=== PATIENT | female | born 2000 | race Asian ===

== ENCOUNTER 2022-04-24 13:44 | Emergency (ER) | payer MEDICAID ==
[~2022-04-24] VITALS: Ht 154.9 cm; Wt 39.0 kg
[~2022-04-24 13:44] MED LIST: FLUO10CA24 PO; OLAN2.5T3 PO
[2022-04-24] MEDS ORDERED: SODIUM CHLORIDE 0.9% 1,000 ML IV ONE (14:15)
[2022-04-24] MEDS ORDERED: KETOROLAC TROMETHAMINE 30 MG/ML VIAL IVP ONE (14:15)
[2022-04-24] MEDS ORDERED: ONDANSETRON HCL 4 MG/2 ML VIAL IVP ONE ×2 (14:15→16:00)
[2022-04-24 14:45] LABS: BASOPHILS % (AUTO) 0.7 % (0.0-2.0); EOSINOPHILS % (AUTO) 0.4 % (1.0-6.0); HEMATOCRIT 32.3 % (36-46); HEMOGLOBIN 10.7 g/dL (12.0-16.0); LYMPHOCYTES # (AUTO) 1.7 K/uL (1.0-4.8); LYMPHOCYTES % (AUTO) 23.7 % (22.0-44.0); MEAN CORPUSCULAR VOLUME 82 fL (80-100); MONOCYTES # (AUTO) 0.4 K/uL (0.1-1.0); MONOCYTES % (AUTO) 6.2 % (2.0-9.0); NEUTROPHILS # (AUTO) 4.9 K/uL (1.8-7.7); PLATELET COUNT (AUTO) 274 K/uL (150-450); RED BLOOD CELL COUNT(AUTO) 3.95 MIL/uL (4.00-5.20); RED CELL DISTRIBUTION WIDTH 12.8 % (11.5-14.5)
[2022-04-24 15:03] LABS: ANION GAP 14 mmol/L (8-16); CALCIUM, TOTAL 10.5 mg/dL (8.8-10.5); CARBON DIOXIDE 20 mmol/L (22-29); CHLORIDE 102 mmol/L (98-107); CREATININE 0.87 mg/dL (0.60-1.30); GLOMERULAR FILTR. RATE CALC > 60 mL/min (>60); GLUCOSE,RANDOM 137 mg/dL (70-110); POTASSIUM 3.1 mmol/L (3.5-5.1); SODIUM SERUM 136 mmol/L (136-145); UREA NITROGEN, BLOOD 12 mg/dL (7-18)
[2022-04-24 15:08] LABS: ALANINE AMINOTRANSFERASE 26 U/L (12-78); ALBUMIN 3.6 g/dL (3.4-5.0); ALKALINE PHOSPHATASE 52 U/L (46-116); ASPARTATE AMINOTRANSFERASE 26 U/L (15-37); BILIRUBIN,TOTAL 0.3 mg/dL (0.1-1.0); LIPASE 109 U/L (73-393); TOTAL PROTEIN, SERUM 8.4 g/dL (6.4-8.2)
[2022-04-24] MEDS ORDERED: PB/HYOSCY/ATR/SCOP/LIDO/MAALOX 55 ML BOTTLE PO ONE (15:30)
[2022-04-24] MEDS ORDERED: OMEPRAZOLE 20 MG CAPSULE PO ONE (16:00)
[2022-04-24 16:05] VITALS: BP 117/76
[2022-04-24] MEDS ORDERED: OMEP20 PO (16:54)
[2022-04-24] MEDS ORDERED: ONDA-104 PO (16:54)
== END 2022-04-24 17:02 | disposition home or self-care (01) ==
LOC: EMS 13:49
DX: R10.84 Generalized abdominal pain (principal); F32.9 Major depressive disorder, single episode, unspecified; F90.9 Attention-deficit hyperactivity disorder, unspecified type
CPT/HCPCS: 99284; 96374; 96361; 96375; 80053; 83690; 85025; 96376; J1885; J2405; J7030

== ENCOUNTER 2022-04-25 09:24 | Emergency (ER) | payer MEDICAID ==
[~2022-04-25] VITALS: Ht 154.9 cm; Wt 43.2 kg
[~2022-04-25 09:24] MED LIST changes: +OMEP20 PO; +ONDA-104 PO
[2022-04-25] MEDS ORDERED: SODIUM CHLORIDE 0.9% 100 ML ONE (09:46)
[2022-04-25] MEDS ORDERED: IOHEXOL 350 MG/ML 100 ML VIAL ONE (09:46)
[2022-04-25 10:39] LABS: BASOPHILS % (AUTO) 0.2 % (0.0-2.0); EOSINOPHILS % (AUTO) 0 % (1.0-6.0); HEMATOCRIT 32.8 % (36-46); HEMOGLOBIN 10.6 g/dL (12.0-16.0); LYMPHOCYTES # (AUTO) 1.4 K/uL (1.0-4.8); LYMPHOCYTES % (AUTO) 18.1 % (22.0-44.0); MEAN CORPUSCULAR HGB CONC 32.4 G/dL (31.0-37.0); MEAN CORPUSCULAR VOLUME 83 fL (80-100); MONOCYTES # (AUTO) 0.5 K/uL (0.1-1.0); MONOCYTES % (AUTO) 6.1 % (2.0-9.0); NEUTROPHILS # (AUTO) 5.9 K/uL (1.8-7.7); NEUTROPHILS % (AUTO) 75.6 % (40.0-70.0); PLATELET COUNT (AUTO) 260 K/uL (150-450); RED BLOOD CELL COUNT(AUTO) 3.94 MIL/uL (4.00-5.20); RED CELL DISTRIBUTION WIDTH 12.7 % (11.5-14.5)
[2022-04-25 10:48] LABS: ANION GAP 15 mmol/L (8-16); CALCIUM, TOTAL 8.3 mg/dL (8.8-10.5); CARBON DIOXIDE 16 mmol/L (22-29); CHLORIDE 100 mmol/L (98-107); CREATININE 0.64 mg/dL (0.60-1.30); GLOMERULAR FILTR. RATE CALC > 60 mL/min (>60); GLUCOSE,RANDOM 84 mg/dL (70-110); POTASSIUM 3.8 mmol/L (3.5-5.1); SODIUM SERUM 131 mmol/L (136-145); UREA NITROGEN, BLOOD 4 mg/dL (7-18)
[2022-04-25 11:00] LABS: ALANINE AMINOTRANSFERASE 25 U/L (12-78); ALBUMIN 3.5 g/dL (3.4-5.0); ALKALINE PHOSPHATASE 43 U/L (46-116); ASPARTATE AMINOTRANSFERASE 20 U/L (15-37); BILIRUBIN,TOTAL 0.3 mg/dL (0.1-1.0); HCG,QUANTITATIVE < 1 mIU/mL (0-6); LIPASE 84 U/L (73-393); TOTAL PROTEIN, SERUM 8.1 g/dL (6.4-8.2)
[2022-04-25 12:49] VITALS: BP 124/69
== END 2022-04-25 13:49 | disposition home or self-care (01) ==
LOC: EMS 09:25
DX: R10.9 Unspecified abdominal pain (principal); R11.10 Vomiting, unspecified; F32.A Depression, unspecified; F90.9 Attention-deficit hyperactivity disorder, unspecified type
CPT/HCPCS: 99285; 74177; 80053; 83690; 84702; 85025; 36415; Q9967; J7050

== ENCOUNTER 2023-02-27 18:40 | Inpatient (IN) | payer MEDICAID ==
[~2023-02-27] VITALS: Ht 154.9 cm; Wt 40.0 kg
[2023-02-27 20:03] LABS: BASOPHILS % (AUTO) 0.5 % (0.0-2.0); EOSINOPHILS % (AUTO) 0.2 % (1.0-6.0); HEMATOCRIT 36.7 % (36-46); HEMOGLOBIN 11.9 g/dL (12.0-16.0); LYMPHOCYTES # (AUTO) 1.7 K/uL (1.0-4.8); LYMPHOCYTES % (AUTO) 25.5 % (22.0-44.0); MEAN CORPUSCULAR HGB CONC 32.4 G/dL (31.0-37.0); MEAN CORPUSCULAR VOLUME 83 fL (80-100); MONOCYTES # (AUTO) 0.4 K/uL (0.1-1.0); MONOCYTES % (AUTO) 6.4 % (2.0-9.0); NEUTROPHILS # (AUTO) 4.6 K/uL (1.8-7.7); NEUTROPHILS % (AUTO) 67.4 % (40.0-70.0); PLATELET COUNT (AUTO) 341 K/uL (150-450)
[2023-02-27 20:11] LABS: ANION GAP 12 mmol/L (8-16); CALCIUM, TOTAL 9.4 mg/dL (8.8-10.5); CARBON DIOXIDE 23 mmol/L (22-29); CHLORIDE 98 mmol/L (98-107); CREATININE 0.69 mg/dL (0.60-1.30); GLOMERULAR FILTR. RATE CALC > 60 mL/min (>60); GLUCOSE,RANDOM 93 mg/dL (70-110); POTASSIUM 3.2 mmol/L (3.5-5.1); SODIUM SERUM 133 mmol/L (136-145)
[2023-02-27 20:23] LABS: ALANINE AMINOTRANSFERASE 16 U/L (12-78); ALBUMIN 3.8 g/dL (3.4-5.0); ALKALINE PHOSPHATASE 53 U/L (46-116); ASPARTATE AMINOTRANSFERASE 20 U/L (15-37); BILIRUBIN,TOTAL 0.2 mg/dL (0.1-1.0); HCG,QUANTITATIVE < 1 mIU/mL (0-6); TOTAL PROTEIN, SERUM 9.2 g/dL (6.4-8.2)
[2023-02-27] MEDS ORDERED: LORazepam 2 MG TABLET PO ONE (23:00)
[2023-02-27] MEDS ORDERED: DiphenhydrAMINE HCL 50 MG CAPSULE PO ONE (23:00)
[2023-02-28 00:21] LABS: COVID AG,FIA SOURCE NASAL SWAB
[2023-02-28] MEDS ORDERED: ZOLPIDEM TARTRATE 10 MG TABLET PO PRN (02:45)
[2023-02-28] MEDS ORDERED: POTASSIUM CHLORIDE 20 MEQ ER TABLET PO ONE (03:00)
[2023-02-28 04:33] VITALS: BP 97/65
[2023-02-28] MEDS ORDERED: GuaiFENesin/D-METHORPHAN [SUGAR-FREE] 200-20MG/10 ML SYRUP UDCUP PO PRN (06:15)
[2023-02-28] MEDS ORDERED: ONDANSETRON HCL 4 MG TABLET PO PRN (06:15)
[2023-02-28] MEDS ORDERED: LOPERAMIDE HCL 2 MG CAPSULE PO PRN (06:15)
[2023-02-28] MEDS ORDERED: CloNIDine HCL 0.1 MG TABLET PO PRN (06:15)
[2023-02-28] MEDS ORDERED: PETROLATUM,WHITE 28 GM JELLY TP PRN (06:15)
[2023-02-28] MEDS ORDERED: DOCUSATE SODIUM 100 MG CAPSULE PO PRN (06:15)
[2023-02-28] MEDS ORDERED: MAGNESIUM HYDROXIDE SUSPENSION 30 ML UDCUP PO PRN (06:15)
[2023-02-28] MEDS ORDERED: ALBUTEROL SULFATE HFA 90 MCG/PUFF 8 GM INHALER IH PRN (06:15)
[2023-02-28] MEDS ORDERED: IBUPROFEN 400 MG TABLET PO PRN (06:15)
[2023-02-28] MEDS ORDERED: MAG HYDROX/AL HYDROX/SIMETH ES 30 ML SUSPENSION UDCUP PO PRN (06:15)
[2023-02-28] MEDS ORDERED: ACETAMINOPHEN 325 MG TABLET PO PRN (06:15)
[2023-02-28] MEDS ORDERED: NICOTINE 14 MG/24 HOUR PATCH TD PRN (06:15)
[2023-02-28] MEDS ORDERED: OMEPRAZOLE 20 MG CAPSULE PO SCH (09:00)
[2023-02-28 09:25] VITALS: BP 103/68
[2023-02-28] MEDS: OMEPRAZOLE 20 MG CAPSULE PO SCH (09:44)
[2023-02-28] MEDS ORDERED: ESCI20TA37 PO (17:10)
[2023-02-28] MEDS ORDERED: ATOM80CA3 PO (17:10)
[2023-02-28] MEDS: LORazepam 2 MG TABLET PO PRN (17:56)
[2023-02-28] MEDS: ESCITALOPRAM OXALATE 20 MG TABLET PO SCH (17:56)
[2023-03-01 07:22] LABS: CARBON DIOXIDE 27 mmol/L (22-29); CHLORIDE 103 mmol/L (98-107); POTASSIUM 3.5 mmol/L (3.5-5.1); SODIUM SERUM 137 mmol/L (136-145)
[2023-03-01 07:23] LABS: ALANINE AMINOTRANSFERASE 19 U/L (12-78); ALBUMIN 3.3 g/dL (3.4-5.0); ALKALINE PHOSPHATASE 50 U/L (46-116); ANION GAP 7 mmol/L (8-16); ASPARTATE AMINOTRANSFERASE 18 U/L (15-37); BILIRUBIN,TOTAL 0.3 mg/dL (0.1-1.0); CALCIUM, TOTAL 8.8 mg/dL (8.8-10.5); CREATININE 0.88 mg/dL (0.60-1.30); GLOMERULAR FILTR. RATE CALC > 60 mL/min (>60); GLUCOSE,RANDOM 76 mg/dL (70-110); PHOSPHORUS 3.8 mg/dL (2.5-4.9); TOTAL PROTEIN, SERUM 8.1 g/dL (6.4-8.2)
[2023-03-01 08:00] VITALS: BP 107/69
[2023-03-01] MEDS: THIAMINE 100 MG TABLET PO SCH ×2 (08:16→09:00)
[2023-03-01] MEDS: MULTIVITAMINS WITH MINERALS, THERAPEUTIC TABLET PO SCH ×4 (08:16→12:58)
[2023-03-01] MEDS: OMEPRAZOLE 20 MG CAPSULE PO SCH (08:16)
[2023-03-01] MEDS: ATOMOXETINE HCL 40 MG CAPSULE PO SCH ×2 (08:16→09:00)
[2023-03-01] MEDS: FOLIC ACID 1 MG TABLET PO SCH (08:16)
[2023-03-01] MEDS: ESCITALOPRAM OXALATE 20 MG TABLET PO SCH (08:16)
[2023-03-01] MEDS: HALOPERIDOL 5 MG TABLET PO PRN ×3 (12:46→20:45)
[2023-03-01] MEDS ORDERED: PRAM0.5T12 PO (16:53)
[2023-03-01] MEDS ORDERED: CLON1PAT12 TD (16:53)
[2023-03-01] MEDS ORDERED: NORG-20 PO (16:53)
[2023-03-01] MEDS: RisperiDONE 1 MG TABLET PO SCH (20:34)
[2023-03-01] MEDS: LORazepam 2 MG TABLET PO PRN (20:45)
[2023-03-01 21:57] VITALS: BP 115/87
[2023-03-02 08:20] VITALS: BP 124/74
[2023-03-02] MEDS: MULTIVITAMINS WITH MINERALS, THERAPEUTIC TABLET PO SCH (09:00)
[2023-03-02] MEDS: ATOMOXETINE HCL 40 MG CAPSULE PO SCH (09:00)
[2023-03-02] MEDS: OMEPRAZOLE 20 MG CAPSULE PO SCH (10:19)
[2023-03-02] MEDS: ESCITALOPRAM OXALATE 20 MG TABLET PO SCH (10:19)
[2023-03-02] MEDS: THIAMINE 100 MG TABLET PO SCH (10:19)
[2023-03-02] MEDS: FOLIC ACID 1 MG TABLET PO SCH (10:19)
[2023-03-02] MEDS: LORazepam 2 MG TABLET PO PRN (14:45)
[2023-03-02] MEDS: HALOPERIDOL 5 MG TABLET PO PRN (14:45)
[2023-03-02] MEDS: RisperiDONE 1 MG TABLET PO SCH (22:03)
[2023-03-03 08:30] VITALS: BP 123/78
[2023-03-03] MEDS: MULTIVITAMINS WITH MINERALS, THERAPEUTIC TABLET PO SCH (08:37)
[2023-03-03] MEDS: THIAMINE 100 MG TABLET PO SCH (08:37)
[2023-03-03] MEDS: FOLIC ACID 1 MG TABLET PO SCH (08:38)
[2023-03-03] MEDS: ESCITALOPRAM OXALATE 20 MG TABLET PO SCH (08:38)
[2023-03-03] MEDS: OMEPRAZOLE 20 MG CAPSULE PO SCH (08:38)
[2023-03-03] MEDS: ATOMOXETINE HCL 40 MG CAPSULE PO SCH (08:45)
[2023-03-03] MEDS ORDERED: GADOTERATE MEGLUMINE 10 MMOL/20 ML VIAL IVP ONE (15:17)
[2023-03-03] MEDS: LORazepam 2 MG TABLET PO PRN (17:39)
[2023-03-03] MEDS: HALOPERIDOL 5 MG TABLET PO PRN (17:39)
[2023-03-03 20:53] VITALS: BP 128/64
[2023-03-03] MEDS: RisperiDONE 1 MG TABLET PO SCH (21:05)
[2023-03-04 06:04] LABS: ANION GAP 7 mmol/L (8-16); CALCIUM, TOTAL 8.8 mg/dL (8.8-10.5); CARBON DIOXIDE 28 mmol/L (22-29); CHLORIDE 104 mmol/L (98-107); CREATININE 0.79 mg/dL (0.60-1.30); GLOMERULAR FILTR. RATE CALC > 60 mL/min (>60); GLUCOSE,RANDOM 76 mg/dL (70-110); POTASSIUM 3.6 mmol/L (3.5-5.1); SODIUM SERUM 139 mmol/L (136-145)
[2023-03-04 08:00] VITALS: BP 115/77
[2023-03-04] MEDS: MULTIVITAMINS WITH MINERALS, THERAPEUTIC TABLET PO SCH (08:38)
[2023-03-04] MEDS: LORazepam 2 MG TABLET PO PRN (08:38)
[2023-03-04] MEDS: OMEPRAZOLE 20 MG CAPSULE PO SCH (08:39)
[2023-03-04] MEDS: ATOMOXETINE HCL 40 MG CAPSULE PO SCH (08:39)
[2023-03-04] MEDS: THIAMINE 100 MG TABLET PO SCH (08:39)
[2023-03-04] MEDS: FOLIC ACID 1 MG TABLET PO SCH (08:39)
[2023-03-04] MEDS: ESCITALOPRAM OXALATE 20 MG TABLET PO SCH (08:41)
[2023-03-04] MEDS: HALOPERIDOL 5 MG TABLET PO PRN ×2 (08:41→15:13)
[2023-03-04 15:12] VITALS: BP 94/60
[2023-03-04] MEDS: RisperiDONE 1 MG TABLET PO SCH (20:32)
[2023-03-04 21:41] VITALS: BP 102/68
[2023-03-05] MEDS: OMEPRAZOLE 20 MG CAPSULE PO SCH (08:25)
[2023-03-05] MEDS: ATOMOXETINE HCL 40 MG CAPSULE PO SCH (08:25)
[2023-03-05] MEDS: ESCITALOPRAM OXALATE 20 MG TABLET PO SCH (08:25)
[2023-03-05] MEDS: MULTIVITAMINS WITH MINERALS, THERAPEUTIC TABLET PO SCH (08:25)
[2023-03-05] MEDS: THIAMINE 100 MG TABLET PO SCH (08:25)
[2023-03-05] MEDS: FOLIC ACID 1 MG TABLET PO SCH (08:25)
[2023-03-05 09:18] VITALS: BP 113/70
[2023-03-05] MEDS: LORazepam 2 MG TABLET PO PRN (15:06)
[2023-03-05] MEDS: RisperiDONE 1 MG TABLET PO SCH (20:16)
[2023-03-05 20:33] VITALS: BP 122/78
[2023-03-06] MEDS: FOLIC ACID 1 MG TABLET PO SCH (08:10)
[2023-03-06] MEDS: ATOMOXETINE HCL 40 MG CAPSULE PO SCH (08:10)
[2023-03-06] MEDS: MULTIVITAMINS WITH MINERALS, THERAPEUTIC TABLET PO SCH (08:10)
[2023-03-06] MEDS: THIAMINE 100 MG TABLET PO SCH (08:10)
[2023-03-06] MEDS: ESCITALOPRAM OXALATE 20 MG TABLET PO SCH (08:10)
[2023-03-06] MEDS: OMEPRAZOLE 20 MG CAPSULE PO SCH (08:11)
[2023-03-06 09:38] VITALS: BP 96/63
[2023-03-06 20:39] VITALS: BP 116/80
[2023-03-06] MEDS: RisperiDONE 1 MG TABLET PO SCH (20:40)
[2023-03-06] MEDS: HALOPERIDOL 5 MG TABLET PO PRN (21:52)
[2023-03-07] MEDS: HALOPERIDOL 5 MG TABLET PO PRN ×2 (07:00→20:00)
[2023-03-07] MEDS: FOLIC ACID 1 MG TABLET PO SCH (08:01)
[2023-03-07] MEDS: MULTIVITAMINS WITH MINERALS, THERAPEUTIC TABLET PO SCH (08:01)
[2023-03-07] MEDS: THIAMINE 100 MG TABLET PO SCH (08:01)
[2023-03-07] MEDS: OMEPRAZOLE 20 MG CAPSULE PO SCH (08:01)
[2023-03-07] MEDS: ESCITALOPRAM OXALATE 20 MG TABLET PO SCH (08:01)
[2023-03-07] MEDS: LORazepam 2 MG TABLET PO PRN ×2 (08:01→20:00)
[2023-03-07] MEDS: ATOMOXETINE HCL 40 MG CAPSULE PO SCH (08:10)
[2023-03-07 09:06] VITALS: BP 111/77
[2023-03-07] MEDS: RisperiDONE 2 MG TABLET PO SCH (20:25)
[2023-03-07 20:50] VITALS: BP 113/77
[2023-03-08 08:00] VITALS: BP 116/77
[2023-03-08] MEDS: MULTIVITAMINS WITH MINERALS, THERAPEUTIC TABLET PO SCH (08:29)
[2023-03-08] MEDS: ESCITALOPRAM OXALATE 20 MG TABLET PO SCH (08:29)
[2023-03-08] MEDS: OMEPRAZOLE 20 MG CAPSULE PO SCH (08:30)
[2023-03-08] MEDS: FOLIC ACID 1 MG TABLET PO SCH (08:30)
[2023-03-08] MEDS: ATOMOXETINE HCL 40 MG CAPSULE PO SCH (08:30)
[2023-03-08] MEDS: THIAMINE 100 MG TABLET PO SCH (08:30)
[2023-03-08] MEDS: HALOPERIDOL 5 MG TABLET PO PRN (18:40)
[2023-03-08 20:33] VITALS: BP 111/77
[2023-03-08] MEDS: RisperiDONE 2 MG TABLET PO SCH (20:56)
[2023-03-08] MEDS: LORazepam 2 MG TABLET PO PRN (23:50)
[2023-03-09 09:28] VITALS: BP 96/61
[2023-03-09] MEDS: MULTIVITAMINS WITH MINERALS, THERAPEUTIC TABLET PO SCH (09:41)
[2023-03-09] MEDS: OMEPRAZOLE 20 MG CAPSULE PO SCH (09:41)
[2023-03-09] MEDS: FOLIC ACID 1 MG TABLET PO SCH (09:41)
[2023-03-09] MEDS: ESCITALOPRAM OXALATE 20 MG TABLET PO SCH (09:41)
[2023-03-09] MEDS: THIAMINE 100 MG TABLET PO SCH (09:41)
[2023-03-09] MEDS: ATOMOXETINE HCL 40 MG CAPSULE PO SCH (09:43)
[2023-03-09] MEDS: RisperiDONE 2 MG TABLET PO SCH (20:44)
[2023-03-09 21:05] VITALS: BP 107/72
[2023-03-10] MEDS: LORazepam 2 MG TABLET PO PRN (03:51)
[2023-03-10] MEDS: FOLIC ACID 1 MG TABLET PO SCH (08:50)
[2023-03-10] MEDS: THIAMINE 100 MG TABLET PO SCH (08:50)
[2023-03-10] MEDS: MULTIVITAMINS WITH MINERALS, THERAPEUTIC TABLET PO SCH (08:50)
[2023-03-10] MEDS: ATOMOXETINE HCL 40 MG CAPSULE PO SCH (08:51)
[2023-03-10] MEDS: ESCITALOPRAM OXALATE 20 MG TABLET PO SCH (08:51)
[2023-03-10] MEDS: OMEPRAZOLE 20 MG CAPSULE PO SCH (08:51)
[2023-03-10 08:55] VITALS: BP 123/78
[2023-03-10] MEDS ORDERED: RISP2TAB86 PO (13:33)
[2023-03-10] MEDS ORDERED: ATOM40CA9 PO (13:33)
[2023-03-10] MEDS ORDERED: ESCI20TA87 PO (13:33)
== END 2023-03-10 17:22 | disposition home or self-care (01) | DRG 751 ==
LOC: EMS 18:40 → 3EI 02-28 02:51
PROVIDERS: ADMIT Psychiatry & Neurology Psychiatry; ATTEND Psychiatry & Neurology Psychiatry
DX: F33.3 Major depressive disorder, recurrent, severe with psychotic symptoms (principal); E87.1 Hypo-osmolality and hyponatremia; R45.851 Suicidal ideations; G91.9 Hydrocephalus, unspecified; F41.9 Anxiety disorder, unspecified; Z20.822 Contact with and (suspected) exposure to COVID-19; D64.9 Anemia, unspecified; F42.9 Obsessive-compulsive disorder, unspecified; F90.9 Attention-deficit hyperactivity disorder, unspecified type; E87.6 Hypokalemia; G47.00 Insomnia, unspecified; Z79.899 Other long term (current) drug therapy
CPT/HCPCS: 70450; 70553; 80048; 80053; 83735; 84100; 84702; 85025; 99285; G0480